=== PATIENT | female | born 1970 | race Caucasian/White ===

== ENCOUNTER → 2016-03-08 | Outpatient (CLI) | payer BC ==
--- NOTE | 2016-03-08 12:36 | CT ---
EXAMINATION TYPE: CT sinus wo con DATE OF EXAM: 03/08/2016 12:17 PM COMPARISON: NONE HISTORY: sinusitis CT DLP: 597 mGycm Automated exposure control for dose reduction was used. FINDINGS: Visualized intracranial structures are unremarkable. Soft tissues are normal. The paranasal sinuses are clear. Visualized mastoid air cells are clear. Both infundibula are patent. IMPRESSION: NORMAL CT SCAN OF THE PARANASAL SINUSES.
== END | disposition home or self-care (01) ==
LOC: RADCTMAIN 11:43
PROVIDERS: ATTEND Nurse Practitioner Family
DX: J32.9 Chronic sinusitis, unspecified (principal)
CPT/HCPCS: 70486

== ENCOUNTER 2016-04-14 05:51 | Inpatient (IN) | payer BC ==
[2016-04-14] MEDS ORDERED: SODIUM CHLORIDE 0.9% 1,000 ML IV STA (06:05)
[2016-04-14] MEDS ORDERED: ONDANSETRON 4 MG/2 ML VIAL IVP STA (06:05)
[2016-04-14] MEDS ORDERED: HYDROmorphone 1 MG/ML 1 ML SYRINGE IVP STA (06:05)
--- NOTE | 2016-04-14 06:07 | ED ---
General Adult HPI - General Chief complaint: Abdominal Pain Stated complaint: abd pain Time Seen by Provider: 04/14/16 06:00 Source: patient, RN notes reviewed Mode of arrival: ambulatory Limitations: no limitations - History of Present Illness Initial comments: This is a 45-year-old female who presents emergency department with past medical history significant for cholecystectomy as well as pancreatitis in the past. Patient states on Friday she vomited times one but Friday she felt pretty good but she did have a little bit of diarrhea. Patient states when she had the diarrhea she felt much better afterwards. Patient states at 1:00 is when she woke up with severe upper abdominal pain and vomiting. Patient states when she pulled into the parking lot at the hospital the pain went down to a 3 out of 10 but she does remain nauseated. Patient denies any fever or chills per patient denies any dysuria hematuria urinary frequency. Patient denies any chest pain difficulty breathing shortness of breath. Patient denied headache patient denies any numbness or weakness. - Related Data Home Medications Medication Instructions Recorded Confirmed Dicyclomine [Bentyl] 10 mg PO TID PRN 04/06/14 04/14/16 Acetaminophen Tab [Tylenol Tab] 1,000 mg PO Q6HR PRN 01/16/15 04/14/16 [id number] 1 each PO Q4HR PRN 01/16/15 04/14/16 [Excedrin] Famotidine [Pepcid] 20 mg PO BID 01/16/15 04/14/16 Ibuprofen [Motrin] 200 - 800 mg PO Q6HR PRN 01/16/15 04/14/16 L.acidoph,Paracasei, B.lactis 1 each PO DAILY 01/16/15 04/14/16 [Probiotic] LORazepam [Ativan] 1 mg PO TID PRN 01/16/15 04/14/16 Metamucil 1tsp 1 tsp PO DAILY 01/16/15 04/14/16 Phenergan(Unknown Dose) 1 tab PO QID 02/01/15 04/14/16 Vortioxetine Hydrobromide 10 mg PO DAILY 02/01/15 04/14/16 [Brintellix] Allergies Allergy/AdvReac Type Severity Reaction Status Date / Time tramadol HCl [From [facility]] Allergy Unknown Rash/Hives Verified 02/01/15 10:33 codeine AdvReac Unknown NAUSEA, Verified 02/01/15 10:33 DIZZINESS, FEELS "LOOPY" sertraline HCl [From Zoloft] AdvReac Hallucinati Verified 02/02/15 12:37 ons Review of Systems ROS Statement: Those systems with pertinent positive or pertinent negative responses have been documented in the HPI. ROS Other: All systems not noted in ROS Statement are negative. Past Medical History Past Medical History: GERD/Reflux Additional Past Medical History / Comment(s): HX OF MIGRAINES, ENLARGED LIVER., SPASTIC COLON WITH CONSTIPATION AND DIARRHEA AND ABD CRAMPING. Hx. of pancreatitis & heavy menstrual periods. Hospitalized for pneumonia, bronchitis last spring. History of Any Multi-Drug Resistant Organisms: None Reported Past Surgical History: Cholecystectomy, Uterine Ablation Additional Past Surgical History / Comment(s): Eye surgery as a child, colonoscopy, EGD. Past Anesthesia/Blood Transfusion Reactions: Family History of Problems w/ Anesthesia, Motion Sickness, Postoperative Nausea & Vomiting (PONV) Additional Past Anesthesia/Blood Transfusion Reaction / Comment(s): SISTERS=PONV Past Psychological History: Depression Smoking Status: Never smoker Past Alcohol Use History: None Reported Past Drug Use History: None Reported - Past Family History Mother Family Medical History: No Reported History Father Family Medical History: Hypertension General Exam - General Exam Comments Initial Comments: GENERAL: Patient is well-developed and well-nourished. Patient is nontoxic and well- hydrated and is in mild distress. ENT: Neck is soft and supple. No significant lymphadenopathy is noted. Oropharynx is clear. Moist mucous membranes. Neck has full range of motion without eliciting any pain. EYES: The sclera were anicteric and conjunctiva were pink and moist. Extraocular movements were intact and pupils were equal round and reactive to light. Eyelids were unremarkable. PULMONARY: Unlabored respirations. Good breath sounds bilaterally. No audible rales rhonchi or wheezing was noted. CARDIOVASCULAR: Patient has some mild tenderness in the epigastric region. ABDOMEN: Soft and nontender with normal bowel sounds. No palpable organomegaly was noted. There is no palpable pulsatile mass. SKIN: Skin is clear with no lesions or rashes and otherwise unremarkable. NEUROLOGIC: Patient is alert and oriented x3. Cranial nerves II through XII are grossly intact. Motor and sensory are also intact. Normal speech, volume and content. Symmetrical smile. Musculoskeletal Normal extremities with adequate strength and full range of motion. No lower extremity swelling or edema. No calf tenderness. LYMPHATICS: No significant lymphadenopathy is noted PSYCHIATRIC: Normal psychiatric evaluation. Normal interpersonal interactions appears functionally intact in deals appropriately with others. No signs of depression. Limitations: no limitations Course Vital Signs 04/14/16 04/14/16 05:54 06:34 Temperature 97.0 F L Pulse Rate 81 80 Respiratory 18 16 Rate Blood Pressure 118/56 114/57 O2 Sat by Pulse 97 96 Oximetry Medical Decision Making - Lab Data Result diagrams: 04/14/16 06:13 04/14/16 06:13 Lab Results 04/14/16 04/14/16 Range/Units 06:13 06:13 WBC 13.0 H (3.8-10.6) k/uL RBC 4.67 (3.80-5.40) m/uL Hgb 14.5 (11.4-16.0) gm/dL Hct 43.6 (34.0-46.0) % MCV 93.4 (80.0-100.0) fL MCH 31.0 (25.0-35.0) pg MCHC 33.2 (31.0-37.0) g/dL RDW 12.7 (11.5-15.5) % Plt Count 313 (150-450) k/uL Neutrophils % 86 % Lymphocytes % 8 % Monocytes % 4 % Eosinophils % 1 % Basophils % 0 % Neutrophils # 11.2 H (1.3-7.7) k/uL Lymphocytes # 1.1 (1.0-4.8) k/uL Monocytes # 0.5 (0-1.0) k/uL Eosinophils # 0.1 (0-0.7) k/uL Basophils # 0.1 (0-0.2) k/uL Sodium 142 (137-145) mmol/L Potassium 4.4 (3.5-5.1) mmol/L Chloride 105 (98-107) mmol/L Carbon Dioxide 26 (22-30) mmol/L Anion Gap 11 mmol/L BUN 11 (7-17) mg/dL Creatinine 0.73 (0.52-1.04) mg/dL Est GFR (MDRD) Af Amer >60 (>60 ml/min/1.73 sqM) Est GFR (MDRD) Non-Af >60 (>60 ml/min/1.73 sqM) Glucose 118 H (74-99) mg/dL Calcium 9.0 (8.4-10.2) mg/dL Total Bilirubin 0.9 (0.2-1.3) mg/dL AST 248 H (14-36) U/L ALT 137 H (9-52) U/L Alkaline Phosphatase 156 H (38-126) U/L Total Protein 7.7 (6.3-8.2) g/dL Albumin 4.3 (3.5-5.0) g/dL Amylase 408 H* (30-110) U/L Disposition Clinical Impression: Pancreatitis Disposition: ADMITTED IP TO THIS [facility] Time of Disposition: 06:50
[2016-04-14 06:27] LABS: Basophils # (A) 0.1 k/uL (0-0.2); Basophils % (A) 0 %; CH 31.1; CHCM 33.4; Eosinophils # (A) 0.1 k/uL (0-0.7); Eosinophils % (A) 1 %; HCT 43.6 % (34.0-46.0); HGB 14.5 gm/dL (11.4-16.0); Luc # (Auto) 0.14; Luc % (Auto) 1; Lymphocytes # (A) 1.1 k/uL (1.0-4.8); Lymphocytes % (A) 8 %; MCHC 33.2 g/dL (31.0-37.0); MCV 93.4 fL (80.0-100.0); Mean Platelet Volume 6.9; Monocytes # (A) 0.5 k/uL (0-1.0); Monocytes % (A) 4 %; Neutrophils # (A) 11.2 k/uL (1.3-7.7); Neutrophils % (A) 86 %; RBC 4.67 m/uL (3.80-5.40); RDW 12.7 % (11.5-15.5); WBC (Perox) 12.97
[2016-04-14 06:38] LABS: ALT 137 U/L (9-52); AST 248 U/L (14-36); Alkaline Phosphatase 156 U/L (38-126); Anion Gap 11 mmol/L; Blood Urea Nitrogen 11 mg/dL (7-17); Carbon Dioxide 26 mmol/L (22-30); Chloride 105 mmol/L (98-107); Glucose 118 mg/dL (74-99); Non-African American GFR(MDRD) >60 (>60 ml/min/1.73 sqM); Potassium 4.4 mmol/L (3.5-5.1); Sodium 142 mmol/L (137-145); Total Bilirubin 0.9 mg/dL (0.2-1.3); Total Protein 7.7 g/dL (6.3-8.2)
[2016-04-14 06:47] LABS: Amylase 408 U/L (30-110)
[2016-04-14] MEDS ORDERED: SODIUM CHLORIDE 0.9% 1,000 ML IV ONE (06:51)
[2016-04-14 07:05] LABS: Appearance,Urine Cloudy (Clear); Bilirubin,Urine Negative (Negative); Glucose,Urine (UA) Negative (Negative); Ketones,Urine Negative (Negative); Leukocyte Esterase,Urine Moderate (Negative); Mucus,Urine Moderate /hpf; Nitrite,Urine Negative (Negative); PH, Urine 5.5 (5.0-8.0); Particle Count 16024; Protein,Urine 1+ (Negative); RBC,Urine 13 /hpf (0-5); Specific Gravity,Urine 1.034 (1.001-1.035); Squamous Epithelial Cell,Urine 6 /hpf (0-4); UA Billing (MACRO vs. MICRO) MICRO; WBC,Urine 10 /hpf (0-5)
--- NOTE | 2016-04-14 07:11 | XR ---
EXAM: 2 AP upright views of the abdomen. INDICATION:45-year-old female with abdominal pain. COMPARISON: CT of the abdomen and pelvis 03/09/2014. FINDINGS: 2 AP upright frontal views of the abdomen demonstrates a nonobstructive, nonspecific bowel gas pattern. There are two 0.5 cm radiopaque densities project over the inferior pole of the left renal shadow and correspond to the nonobstructing renal calculi seen on the comparison CT abdomen and pelvis. Phleboliths are present in the pelvis. Surgical clips project over the right upper quadrant and right midabdomen. No evidence of organomegaly or obvious soft tissue masses. The osseous structures are intact. IMPRESSION: 1. Nonobstructing left renal calculi. 2. Otherwise, no radiographic evidence for an acute abdominopelvic abnormality.
[2016-04-14] MEDS: HYDROmorphone 1 MG/ML 1 ML SYRINGE IVP PRN ×3 (10:57→19:33)
[2016-04-14 11:13] VITALS: BMI 28.8
--- NOTE | 2016-04-14 11:13 | CONS ---
DATE OF CONSULTATION: 04/14/2016 The patient is a 45-year-old pleasant white female admitted to the hospital with acute onset of severe epigastric pain associated with nausea and vomiting that started yesterday morning. She came to the emergency room and was noted to have elevated amylase and lipase consistent with acute pancreatitis. The patient had a similar episode in 2014, at which time she was admitted at [facility] and etiology could not be determined. She is status post gallbladder in 2012 for gallbladder dyskinesia. The patient this morning states she is feeling better. Still has epigastric pain. Nausea and vomiting has resolved. No fever, chills, night sweats. She denies new medications recently. PAST MEDICAL HISTORY: Significant for irritable bowel syndrome, gastroesophageal reflux disease, and previous episode of acute pancreatitis in 2014, chronic migraines. PAST SURGICAL HISTORY: Gallbladder surgery and uterine ablation, EGD, colonoscopy in the past. Medications at home include: Brintellix, Ativan, probiotics, Metamucil, MiraLAX, Pepcid, Bentyl, Tylenol p.r.n., Excedrin. SOCIAL HISTORY: No smoking. No alcohol use. FAMILY HISTORY: Father had hypertension. Mother was unremarkable. REVIEW OF SYSTEMS: CARDIOPULMONARY: No chest pain or shortness of breath. GENITOURINARY: No dysuria or hematuria. MUSCULOSKELETAL: Unremarkable. SKIN: Unremarkable. ENDOCRINE: Unremarkable. PSYCHIATRIC: Unremarkable. NEUROLOGICAL: Unremarkable. ENT/VISION: Unremarkable. CONSTITUTIONAL: No recent weight loss. No fever, chills or night sweats. On physical examination, blood pressure 118/56, pulse rate 81, temperature 97. HEENT examination unremarkable. Conjunctivae pink. Sclerae anicteric. Oral cavity, no lesions. NECK: No JVD or lymph node enlargement. CHEST: Clear to auscultation. HEART: Regular rate and rhythm. ABDOMEN: Soft. Mild tenderness in the epigastric area. Bowel sounds are positive. No organomegaly. EXTREMITIES: No pedal edema. SKIN: No rashes. NEURO: Alert and oriented x3. No focal deficits. Labs done at the time of admission to the hospital: WBC 13, hemoglobin 14.5, platelets normal. AST 248, ALT 137, alk phos 156, T-bili 0.9, amylase 408, lipase 5897. IMPRESSION: This is a lady who presents to the hospital with acute onset of severe epigastric pain associated with nausea, vomiting, and noted to have elevated amylase, lipase consistent with acute pancreatitis. She had a similar episode in 2015, etiology not determined. She is status post gallbladder surgery 4 years ago for gallbladder dyskinesia. She is noted to have mild elevation of serum transaminases and hence, possibility of biliary pathology cannot be excluded as the cause of acute recurrent pancreatitis. Of course, other etiologies, other metabolic conditions like hypertriglyceridemia and autoimmune pancreatitis also needs to be considered. RECOMMENDATIONS: I had a lengthy discussion with the patient as well as her who is at the bedside regarding possible etiologies of acute pancreatitis. Given her elevated serum transaminases and the fact that she did not have any gallstones during her prior gallbladder surgery, I will to proceed with an M.R.C.P. to rule out any CBD pathology. If it is negative and if labs continue to improve we can treat her conservatively and I suggested that eventually she will need to have further work-up for acute recurrent pancreatitis on an outpatient basis. For now, will start her on some ice chips, continue with pain medications, repeat labs in the morning and follow her closely during her hospital stay. Thank you for this consultation.
[2016-04-14] MEDS ORDERED: ALBUTEROL NEBULIZED 2.5 MG/3 ML INHALATION PRN (11:34)
[2016-04-14] MEDS: diphenhydrAMINE 50 MG/ML 1 ML VIAL IVP PRN ×2 (14:42→19:33)
[2016-04-14 16:15] VITALS: RESP 16
[2016-04-14] MEDS ORDERED: DIAZEPAM 5 MG TAB PO STA (18:43)
[2016-04-14] MEDS: ONDANSETRON 4 MG/2 ML VIAL IVP PRN (19:32)
[2016-04-14] MEDS: KETOROLAC 30 MG/ML 1 ML VIAL IVP STA (19:33)
[2016-04-14] MEDS: ENOXAPARIN 40 MG/0.4 ML SYRINGE SQ SCH (19:34)
[2016-04-14] MEDS ORDERED: DIAZEPAM 5 MG/ML 2 ML SYRINGE IVP STA (19:43)
[2016-04-14] MEDS: PANTOPRAZOLE 40 MG/10 ML VIAL IVP SCH (20:12)
[2016-04-14] MEDS: TRINTELLIX 20 MG PO SCH (21:40)
[2016-04-14] MEDS: LORATADINE 10 MG TAB PO SCH (21:48)
[2016-04-15] MEDS: KETOROLAC 30 MG/ML 1 ML VIAL IVP STA (04:28)
--- NOTE | 2016-04-15 08:04 | HP ---
DATE OF ADMISSION: 04/14/2016 PRESENTING COMPLAINT: Abdominal pain. HISTORY OF PRESENTING COMPLAINT: Very pleasant 45-year-old patient of Dr. Mckenna whose chronic stable medical conditions include GERD, migraines, spastic colon, irritable bowel syndrome and anxiety. Patient presented with severe epigastric pain going across, going into the shoulder with nausea, vomiting, started off last night. Patient found to have acute pancreatitis. The patient had one episode before. Patient does take a Probiotic supplement called Kefir grans. Patient's at the bedside. Pain is somewhat better since presentation. Patient has had prior cholecystectomy, REVIEW OF SYSTEMS: CONSTITUTIONAL: Weak, tired. HEENT: None. RESPIRATORY: None. CARDIOVASCULAR: None. GASTROINTESTINAL: As above. GENITOURINARY: None. MUSCULOSKELETAL: None. Dermatological: None. HEMATOLOGICAL: None. LYMPHATICS: None. PSYCHIATRY: Anxiety. NEUROLOGICAL: None. Past medical history of migraines, GERD, irritable bowel syndrome, pancreatitis, anxiety. PAST SURGICAL HISTORY: Cholecystectomy, uterine ablation, eye surgery as a child. Colonoscopy. 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 FAMILY HISTORY: Reviewed, noncontributory to the presentation. HOME MEDICATIONS: 1. Trentalex 20 mg p.o. q.h.s. 2. Sodium chloride two sprays each nostril daily p.r.n. 3. MiraLax 17 grams p.o. daily. 4. Afrin 2 sprays nostril b.i.d. p.r.n. 5. Claritin 10 mg daily. 6. Ativan 0.5 to 1 mg p.o. t.i.d. p.r.n. 7. Motrin p.r.n. 8. Tylenol sinus ( ) 1 tablet q.6 p.r.n. 9. Flonase nasal spray. 10. Pepcid 20 mg q.h.s. 11. Bentyl 10 mg p.o. t.i.d. p.r.n. 12. Excedrin p.r.n. 13. Ventolin 2.5 nebulizer q.i.d. p.r.n. 14. Tylenol 1000 mg q.6 p.r.n. ALLERGIES TO ZOLOFT, CODEINE, ULTRAM. On examination, temperature 97.8, pulse 76, respiration 18, blood pressure 101/52, pulse ox 95% on room air. GENERAL APPEARANCE: Lying in bed, tired appearing. EYES: Pupils equal. Conjunctivae normal. HEENT: Oral cavity normal. NECK: JVD not raised, mass not palpable. RESPIRATORY: Effort normal. LUNGS: Fair air entry. CARDIOVASCULAR: First and second sounds normal. No edema. ABDOMEN: Soft, epigastric tenderness. No guarding or rigidity. Liver and spleen not palpable. LYMPHATIC: No lymph nodes palpable in the neck or axilla. PSYCHIATRY: Alert and oriented x3. Mood and affect normal. NEUROLOGICAL: Pupils equal. Cranial nerves grossly intact. Power and sensation grossly intact. INVESTIGATIONS: White count 13, hemoglobin 10.5. Potassium 4.4. BUN and creatinine are normal, AST 248, ALT 137. Amylase ( ) lipase ( ). ASSESSMENT: 1. Acute idiopathic pancreatitis with one prior episode. 2. Gastroesophageal reflux disease. 3. Irritable bowel syndrome. 4. Anxiety, not otherwise specified. 5. Chronic sinusitis. PLAN: Patient was made n.p.o. Patient will have M.R.C.P. with Dr. Nikhil Long. Care was discussed with the patient. IV fluids are being given. Subcu heparin for DVT prophylaxis.
[2016-04-15 08:05] LABS: Basophils % (A) 1 %; CH 30.7; CHCM 32.3; Eosinophils # (A) 0.1 k/uL (0-0.7); Eosinophils % (A) 2 %; HCT 36.8 % (34.0-46.0); HDW 2.57; HGB 11.6 gm/dL (11.4-16.0); Luc # (Auto) 0.13; Luc % (Auto) 2; Lymphocytes # (A) 1.6 k/uL (1.0-4.8); Lymphocytes % (A) 24 %; MCH 30.1 pg (25.0-35.0); MCHC 31.5 g/dL (31.0-37.0); MCV 95.7 fL (80.0-100.0); Mean Platelet Volume 6.4; Monocytes # (A) 0.3 k/uL (0-1.0); Monocytes % (A) 5 %; Neutrophils # (A) 4.4 k/uL (1.3-7.7); Neutrophils % (A) 66 %; RBC 3.85 m/uL (3.80-5.40); RDW 12.6 % (11.5-15.5); WBC 6.6 k/uL (3.8-10.6); WBC (Perox) 7.06
[2016-04-15 08:13] LABS: ALT 305 U/L (9-52); AST 227 U/L (14-36); Alkaline Phosphatase 162 U/L (38-126); Amylase 217 U/L (30-110); Anion Gap 7 mmol/L; Blood Urea Nitrogen 9 mg/dL (7-17); Carbon Dioxide 26 mmol/L (22-30); Chloride 108 mmol/L (98-107); Glucose 72 mg/dL (74-99); Non-African American GFR(MDRD) >60 (>60 ml/min/1.73 sqM); Potassium 4.1 mmol/L (3.5-5.1); Sodium 141 mmol/L (137-145); Total Bilirubin 0.7 mg/dL (0.2-1.3); Total Protein 5.8 g/dL (6.3-8.2); Triglycerides 79 mg/dL (<150)
[2016-04-15] MEDS: ENOXAPARIN 40 MG/0.4 ML SYRINGE SQ SCH (08:13)
[2016-04-15] MEDS: PANTOPRAZOLE 40 MG/10 ML VIAL IVP SCH (08:13)
[2016-04-15] MEDS: LORATADINE 10 MG TAB PO SCH (08:14)
[2016-04-15] MEDS: ONDANSETRON 4 MG/2 ML VIAL IVP PRN ×2 (08:25→13:14)
[2016-04-15] MEDS ORDERED: LORATADINE-PSEUDOEPH 5-120 MG 1 EACH TAB.ER.12H PO PRN (11:45)
--- NOTE | 2016-04-15 12:27 | MR ---
EXAMINATION TYPE: MR MRCP inpatient stat DATE OF EXAM: 04/15/2016 12:13 PM COMPARISON: MRI 03/17/2014 HISTORY: recurrent pancreatitis with abdominal pain Standard multiplanar, multisequence MRI departmental protocol FINDINGS: Common bile duct and visualized portion of the cystic duct have a normal caliber. There is no intrahe patic biliary dilation. There is some nodular prominence the pancreatic tail. There are no contrast images are adequate for e valuation The heart is prominent in size. Liver and spleen are homogeneous in echogenicity as demonstrated adre nal glands have a normal morphology. Vertebral body hemangioma suspected within the mid lumbar spine kidneys have a normal morphology. There is no evidence of active inflammatory change surrounding the pancreas. IMPRESSION: 1. Normal caliber to the biliary system. 2. Stable prominence of the pancreatic tail without evidence of discrete mass.
[2016-04-15] MEDS: KETOROLAC 30 MG/ML 1 ML VIAL IVP SCH ×2 (13:12→21:48)
[2016-04-15] MEDS: LORATADINE-PSEUDOEPH 5-120 MG 1 EACH TAB.ER.12H PO SCH ×2 (13:15→21:48)
--- NOTE | 2016-04-15 18:01 | PN ---
DATE OF DICTATION: 04/15/2016 Patient is a 45-year-old pleasant lady admitted to the hospital with acute onset of epigastric pain, nausea, vomiting, and was noted to have elevated amylase and lipase consistent with acute pancreatitis. She is doing much better today. Her abdominal pain is decreasing. No further episodes of nausea or vomiting. No fever, chills, night sweats. On physical examination, she appears comfortable, in no apparent distress. Vital signs are stable. Blood pressure is 125/61, pulse rate 73, temperature 96. HEENT: Unremarkable. Conjunctivae pink. Sclerae anicteric. Oral cavity has no lesions. NECK: No JVD or lymph node enlargement. Chest was clear to auscultation. HEART: Regular rate and rhythm. ABDOMEN: Soft. Bowel sounds are positive. No organomegaly. Mild tenderness in the epigastric area. EXTREMITIES: No pedal edema. SKIN: No rashes. NEURO: Alert and oriented x3. No focal deficits. LABS: ALT 227, AST 305, alkaline phosphatase 162. T-bili 0.7. Amylase is down to 217. Lipase is down to 716. Triglycerides are 79. WBC 6.6, hemoglobin 11.6. IMPRESSION: Acute recurrent pancreatitis, this being the second episode, with elevated serum transaminases. The patient did have M.R.C.P. done yesterday that showed no evidence of biliary ductal dilation and no stones identified. Etiology of acute recurrent pancreatitis remains unclear at this time. Possibility of sphincter early dysfunction cannot be excluded. RECOMMENDATIONS: 1. Will start her on a clear liquid diet today. 2. Repeat labs in the morning. If they are improving, she can be discharged home with outpatient followup in 1 to 2 weeks.
[2016-04-15] MEDS: TRINTELLIX 20 MG PO SCH (21:48)
--- NOTE | 2016-04-15 22:42 | PN ---
DATE OF SERVICE: 04/15/2016 PRESENTING COMPLAINT: Acute pancreatitis. INTERVAL HISTORY: This is a patient with a ( ) acute pancreatitis. I saw this patient earlier this morning. Sinuses are giving her some trouble. Otherwise, abdominal pain is better. Patient is due for M.R.C.P. this morning. Review of systems done for constitutional, cardiovascular, GI, pulmonary; relevant findings as above. Current medications are reviewed. On examination, temperature 98.1, pulse 76, respiration 16, blood pressure 101/67, pulse ox 95% on room air. GENERAL APPEARANCE: Lying in bed. EYES: Pupils equal. Conjunctivae normal. NECK: JVD not raised. Mass not palpable. RESPIRATORY: Effort normal. LUNGS: Fair air entry. CARDIOVASCULAR: First and second sounds normal. No edema. ABDOMEN: Much decreased epigastric tenderness. No guarding or rigidity. PSYCHIATRY: Alert and oriented x3. Mood and affect normal. INVESTIGATIONS: White count 6.7, hemoglobin 11.6. Potassium 4.1. BUN and creatinine are normal. AST 227, ALT 305, amylase 217, lipase 716. ASSESSMENT: 1. Acute idiopathic pancreatitis without prior episode; MRCP results came back negative. 2. Gastroesophageal reflux disease. 3. Irritable bowel syndrome. 4. Anxiety not otherwise specified. 5. Chronic sinusitis. 6. Increased liver function tests, cause unclear. PLAN: Continue current medication and treatment plan. Await further input from Dr. Nikhil Long. The pancreatitis ( ) improved. Still do not have a clear-cut explanation for patient's increasing LFTs.
[2016-04-16] MEDS: DICYCLOMINE 10 MG CAP PO PRN ×2 (00:08→12:14)
[2016-04-16] MEDS: KETOROLAC 30 MG/ML 1 ML VIAL IVP SCH ×3 (04:12→17:15)
[2016-04-16 07:58] VITALS: PULSE 83
[2016-04-16] MEDS: LORATADINE-PSEUDOEPH 5-120 MG 1 EACH TAB.ER.12H PO SCH (08:52)
[2016-04-16] MEDS: ONDANSETRON 4 MG/2 ML VIAL IVP PRN (08:52)
[2016-04-16] MEDS: PANTOPRAZOLE 40 MG/10 ML VIAL IVP SCH (08:52)
[2016-04-16] MEDS: ENOXAPARIN 40 MG/0.4 ML SYRINGE SQ SCH (08:52)
--- NOTE | 2016-04-16 09:27 | P.PN ---
Subjective Principal diagnosis: Acute pancreatitis, hepatitis 45-year-old female with a history of acalculus cholecystectomy admitted with second episode of acute pancreatitis with transaminitis. Feels better today. Clear liquid diet causing some mild nausea without emesis. Reports sinus congestion. Morning chemistries pending. Afebrile. SEKOU screen negative. Objective - Vital Signs Vital signs: Vital Signs Temp 97.9 F 04/16/16 07:00 Pulse 83 04/16/16 08:00 Resp 16 04/16/16 08:00 BP 125/60 04/16/16 07:00 Pulse Ox 96 04/16/16 07:00 Intake & Output 04/15/16 04/16/16 04/16/16 18:59 06:59 18:59 Intake Total 726 120 Balance 726 120 Weight 86.183 kg Intake: Intake, IV Titration 726 Amount Sodium Chloride 0.9% 1, 726 000 ml @ 100 mls/hr IV . Q10H ONE Rx#:[id number] Oral 120 Other: Voiding Method Toilet Toilet Toilet # Voids 3 1 1 - Exam General appearance: The patient is alert, oriented, in no acute distress. HET: Head is normocephalic and atraumatic. Pupils are equal and reactive. Oropharynx is clear without lesions. Neck: Supple without lymphadenopathy. Trachea midline. Heart: S1 S2. Regular rate and rhythm. Lungs: No crackles or wheezes are heard. Abdomen: Soft, midepigastric tenderness, nondistended with bowel sounds. No peritoneal signs. No palpable organomegaly or masses. Extremities: Normal skin color and turgor. No cyanosis, rash, ulceration, clubbing, or edema. Radial and pedal pulses are 2/4 bilaterally. Neurological: No focal deficits. Strength and sensation are grossly intact.m - Labs CBC & Chem 7: 04/15/16 07:17 04/15/16 07:17 Assessment and Plan (1) Acute pancreatitis Status: Acute (2) Transaminitis Status: Acute (3) History of cholecystectomy Status: Chronic Plan: 1. Advance diet. 2. Await morning chemistries to review. Hepatitis panel pending. Discharge will be dependent on morning chemistries and clinical course. We'll continue to follow with you. Return to office in 7-10 days after discharge for reevaluation. Assessment and plan of care discussed with Dr. Long.
[2016-04-16 10:24] LABS: ALT 205 U/L (9-52); AST 96 U/L (14-36); Amylase 95 U/L (30-110)
[2016-04-16 10:53] LABS: Hepatitis B Surface Ag Index 0.07
[2016-04-16 10:59] LABS: Hepatitis B Core IgM Index 0.05
[2016-04-16 11:11] LABS: Hepatitis C Virus IgG Ab Negative (Negative); Hepatitis C Virus IgG Index 0.03
[2016-04-16 16:16] VITALS: BP 133/67; TEMP 98.3
[2016-04-17] MEDS ORDERED: PANTOPRAZOLE 40 MG TABLET PO SCH (07:30)
--- NOTE | 2016-04-17 08:24 | DS ---
DATE OF ADMISSION: 04/14/2016 DATE OF DISCHARGE: 04/16/2016 FINAL DIAGNOSES: 1. Acute pancreatitis, idiopathic second episode. 2. Gastroesophageal reflux disease. 3. Irritable bowel syndrome. 4. Anxiety, not otherwise specified. 5. Chronic sinusitis. 6. Increased LFTs, cause unclear. HOSPITAL COURSE: This is a patient with prior history of pancreatitis, cholecystectomy presented with acute pancreatitis. Did undergo an MRCP per Dr. Nikhil Long that was normal. The patient's symptoms greatly improved by the time of discharge. Patient is tolerating a diet. ON EXAM: ABDOMEN: Soft, minimal tenderness. Care was discussed in detail with the patient. CONSULTATION: Dr. Nikhil Long. Patient's LFTs have come down with AST down to 96 and ALT was 205. Amylase and lipase had greatly come down. DISCHARGE MEDICATIONS: 1. Bentyl 10 mg p.o. t.i.d. p.r.n. 2. Excedrin 1 tablet q.4 p.r.n. 3. Pepcid 20 mg p.o. q.h.s. 4. Ativan 0.5 to 1 mg p.o. t.i.d. 5. Ventolin 2.5 mg q.i.d. p.r.n. 6. Flonase 1 to 2 sprays each nostril daily p.r.n. 7. Afrin 2 sprays each nostril b.i.d. p.r.n. 8. MiraLAX 17 grams p.o. daily. 9. [place] spray each nostril daily p.r.n. 10. Trintellix 20 mg p.o. q.h.s. 11. Claritin-D 1 tablet p.o. q.12. 12. Patient to hold off on Tylenol Sinus ( ) caplet and also to hold off on plain Tylenol. Follow up with Dr. Mckenna in 3 days. Follow up with Dr. Long p.r.n. Discharge care planning more 35 minutes.
== END 2016-04-16 17:45 | disposition home or self-care (01) | DRG 440 ==
LOC: EC 05:51 → 5MS5E 06:51
PROVIDERS: ADMIT Hospitalist; ATTEND Hospitalist
DX: K85.00 Idiopathic acute pancreatitis without necrosis or infection (principal); F32.9 Major depressive disorder, single episode, unspecified; F41.9 Anxiety disorder, unspecified; K21.9 Gastro-esophageal reflux disease without esophagitis; K58.0 Irritable bowel syndrome with diarrhea; J32.9 Chronic sinusitis, unspecified; Z90.49 Acquired absence of other specified parts of digestive tract; G43.909 Migraine, unspecified, not intractable, without status migrainosus; Z79.82 Long term (current) use of aspirin; Z79.899 Other long term (current) drug therapy
CPT/HCPCS: 36415; 74000; 74181; 80053; 80074; 81001; 82150; 83690; 84450; 84460; 84478; 85025; 86038; 96361; 96374; 96375; 99285

== ENCOUNTER → 2017-05-27 | Outpatient (CLI) | payer BC ==
--- NOTE | 2017-05-28 10:43 | MM ---
Reason for exam: screening (asymptomatic). Last mammogram was performed 2 years and 3 months ago. History: Took hormonal contraceptives for 2 years. Physical Findings: A clinical breast exam by your physician is recommended on an annual basis and results should be correlated with mammographic findings. MG 3D Screening Mammo W/Cad Bilateral CC and MLO view(s) were taken. Prior study comparison: February 24, 2015, right breast MG 3d work up w/cad RT. February 22, 2015, bilateral MG screening mammo w CAD. The breast tissue is extremely dense which could obscure a lesion on mammography. Finding: There are typically benign round calcifications in both breasts. There is no discrete abnormality. ASSESSMENT: Benign, BI-RAD 2 RECOMMENDATION: Routine screening mammogram of both breasts in 1 year.
== END | disposition home or self-care (01) ==
LOC: RADMAMWWP 10:57
PROVIDERS: ATTEND Obstetrics & Gynecology
DX: Z12.31 Encounter for screening mammogram for malignant neoplasm of breast (principal)
CPT/HCPCS: 77063; 77067

== ENCOUNTER → 2018-08-22 | Outpatient (CLI) | payer BC ==
--- NOTE | 2018-08-22 08:47 | MR ---
EXAMINATION TYPE: MR cervical spine wo con DATE OF EXAM: 08/22/2018 COMPARISON: None HISTORY: Chronic neck pain, LUE radic, recently getting worse TECHNIQUE: Multiplanar, multisequence images of the cervical spine were acquired. C2-C3: No evidence for degenerative disc disease. No disc bulge/herniation or protrusion. No Canal stenosis. Foramina are patent bilaterally. C3-C4: There is moderate left foraminal encroachment due to left lateral disc bulging and hypertrophy of the uncovertebral joint. No focal herniation or canal stenosis. C4-C5: No evidence for degenerative disc disease. No disc bulge/herniation or protrusion. No Canal stenosis. Foramina are patent bilaterally. Mild uncovertebral joint hypertrophy bilaterally. C5-C6: Degenerative disc disease. There is uncovertebral joint hypertrophy and disc bulging laterally to left with moderate left foraminal encroachment. No focal herniation. No Canal stenosis. Degenerat lydia facet changes noted. C6-C7: Severe degenerative disc disease. There is a broad-based central left paracentral disc herniat ion which abuts the anterior margin the spinal cord and results in mild anterior pressure. There is m oderate to severe right foraminal encroachment and severe left foraminal encroachment and there is ce ntral canal stenosis. Uncovertebral joint hypertrophy contributes. C7-T1: No evidence for degenerative disc disease. No disc bulge/herniation or protrusion. No Canal stenosis. Foramina are patent bilaterally. Cervical segments are intact. There is normal alignment. Cervical spinal cord is of normal signal. Craniovertebral junction relationships are within normal limits. There is multilevel degenerative disc disease. IMPRESSION: 1. Central and left paracentral disc herniation with anterior mild compression of spinal cord C6-C7. Bilateral foraminal encroachment greater on the left. 2. Lateral disc bulging and uncovertebral joint hypertrophy C5-C6 and C3-C4 with significant left-ramírez ed foraminal encroachment. 3. Multilevel degenerative disc disease.
== END | disposition home or self-care (01) ==
LOC: RADMRIMAIN 07:57
PROVIDERS: ATTEND Family Medicine
DX: M50.122 Cervical disc disorder at C5-C6 level with radiculopathy (principal); G95.29 Other cord compression
CPT/HCPCS: 72141

== ENCOUNTER → 2018-09-04 | Outpatient (CLI) | payer BC ==
[2018-09-04 11:16] LABS: Appearance,Urine Cloudy (Clear); Bilirubin,Urine Negative (Negative); Blood,Urine Negative (Negative); Color,Urine Yellow; Glucose,Urine (UA) Negative (Negative); Ketones,Urine Negative (Negative); Leukocyte Esterase,Urine Large (Negative); Mucus,Urine Few /hpf; Nitrite,Urine Negative (Negative); PH, Urine 5.5 (5.0-8.0); Protein,Urine Trace (Negative); RBC,Urine 6 /hpf (0-5); Specific Gravity,Urine 1.031 (1.001-1.035); Squamous Epithelial Cell,Urine 13 /hpf (0-4); Urobilinogen,Urine <2.0 mg/dL (<2.0); WBC,Urine 17 /hpf (0-5)
[2018-09-04 11:17] LABS: Basophils # (A) 0.1 k/uL (0-0.2); Basophils % (A) 1 %; Eosinophils # (A) 0.2 k/uL (0-0.7); Eosinophils % (A) 2 %; HCT 43.4 % (34.0-46.0); HGB 13.9 gm/dL (11.4-16.0); Lymphocytes # (A) 2.1 k/uL (1.0-4.8); Lymphocytes % (A) 16 %; MCH 29.4 pg (25.0-35.0); MCHC 32.1 g/dL (31.0-37.0); MCV 91.8 fL (80.0-100.0); Mean Platelet Volume 6.2; Monocytes # (A) 0.4 k/uL (0-1.0); Monocytes % (A) 3 %; Neutrophils # (A) 10.3 k/uL (1.3-7.7); Neutrophils % (A) 78 %; Platelet Count 428 k/uL (150-450); RBC 4.72 m/uL (3.80-5.40); WBC 13.3 k/uL (3.8-10.6)
[2018-09-04 11:20] LABS: INR 0.9 (<1.2); Partial Thromboplastin Time 27.3 sec (22.0-30.0); Prothrombin Time 9.6 sec (9.0-12.0)
[2018-09-04 18:15] LABS: African American GFR (CKD) 87.6 (60.0-200.0); Albumin 4.7 g/dL (3.80-4.90); Albumin/Globulin Ratio 2.04 (1.60-3.17); Anion Gap 9.9 mmol/L (4.00-12.00); BUN/Creat Ratio 21.11 Ratio (12.00-20.00); Calcium 9.6 mg/dL (8.7-10.3); Carbon Dioxide 28.1 mmol/L (21.6-31.8); Globulin 2.3 g/dL (1.6-3.3); Potassium 3.9 mmol/L (3.5-5.5); Total Bilirubin 0.5 mg/dL (0.2-1.2)
== END | disposition home or self-care (01) ==
LOC: LABWHC1 10:21
PROVIDERS: ATTEND Family Medicine
DX: Z01.812 Encounter for preprocedural laboratory examination (principal)
CPT/HCPCS: 36415; 80053; 81001; 85025; 85610; 85730

== ENCOUNTER → 2019-11-24 | Outpatient (CLI) | payer BC ==
--- NOTE | 2019-11-25 07:25 | MR ---
MRI CERVICAL SPINE: CLINICAL HISTORY: Neck and left shoulder pain, limited range of motion and shoulder. History of cervi aide surgery. TECHNIQUE: Multiplanar, multisequence imaging of the cervical spine is performed without IV contrast. COMPARISON: Prior MRI cervical spine August 22, 2018. FINDINGS: Sagittal images of the cervical spine show the craniocervical junction to remain within nor mal limits. The cervical and upper thoracic spinal cord remains normal in course, caliber, and signa l. Interval surgery with no artifact from anterior fusion plate and metallic disc material C5-C7 leve ls. The vertebral body and intravertebral disk heights are normal above and below surgical levels. The bone marrow signal intensity is within normal limits above and below surgical levels. Axial images show C2-C3 level to remain within normal limits. Axial images at C3-C4 level show left lateral disc bulge causing moderate neural foraminal narrowing, no significant change from prior. Axial images at C4-C5 level shows a left paracentral disc protrusion effacing anterolateral thecal sa c with uncovertebral facet degenerative changes mild bilateral neural foraminal narrowing. Disc herni ation more prominent from prior. Axial images at C5-C6 levels artifact from surgical change. Patent bilateral neural foramina. Axial images at C6-C7 level show artifact from surgical change, there is some effacement anterior the aide sac likely from posterior bony projection axial image 16 near superior C7 level. Marked interval improvement in the largest disc herniation after surgery however. Lruc-zy-ezvygfux bilateral neural f oraminal narrowing C6-C7 level remains present due to marginal spurring. Axial images at C7-T1 level remain within normal limits. IMPRESSION: Interval surgery C5-C7 level with satisfactory and stable alignment. Improvement in large st disc herniation after surgical correction. Some increasing degenerative change or new disc herniat ion C4-C5 level noted.
== END | disposition home or self-care (01) ==
LOC: RADMRIMAIN 20:06
PROVIDERS: ATTEND Neurological Surgery
DX: M50.121 Cervical disc disorder at C4-C5 level with radiculopathy (principal)
CPT/HCPCS: 72141

== ENCOUNTER → 2020-06-22 | Outpatient (CLI) | payer BC ==
--- NOTE | 2020-06-23 11:44 | MM ---
Reason for exam: screening (asymptomatic). Last mammogram was performed 3 years and 1 month ago. History: Took hormonal contraceptives for 2 years. Physical Findings: A clinical breast exam by your physician is recommended on an annual basis and results should be correlated with mammographic findings. MG 3D Screening Mammo W/Cad Bilateral CC and MLO view(s) were taken. Prior study comparison: May 27, 2017, bilateral MG 3d screening mammo w/cad. February 24, 2015, right breast MG 3d work up w/cad RT. The breast tissue is heterogeneously dense. This may lower the sensitivity of mammography. Asymmetric breast tissue left upper quadrant is stable. There is no discrete abnormality. ASSESSMENT: Negative, BI-RAD 1 RECOMMENDATION: Routine screening mammogram of both breasts in 1 year.
== END | disposition home or self-care (01) ==
LOC: RADMAMWWP 15:51
PROVIDERS: ATTEND Family Medicine
DX: Z12.31 Encounter for screening mammogram for malignant neoplasm of breast (principal)
CPT/HCPCS: 77063; 77067

== ENCOUNTER → 2020-06-28 | Outpatient (CLI) | payer BC | END | disposition home or self-care (01) | LOC: LABWHC1 11:20 | PROVIDERS: ATTEND Nurse Practitioner Family | DX: M25.50 Pain in unspecified joint (principal); R53.83 Other fatigue; Z86.19 Personal history of other infectious and parasitic diseases | CPT/HCPCS: 36415; 86618 ==

== ENCOUNTER 2020-07-26 07:43 | Day surgery (SDC) | payer BC ==
[2020-07-25 08:52] VITALS: BMI 33.4
[2020-07-26 08:05] VITALS: RESP 16; TEMP 98.6
[2020-07-26] MEDS ORDERED: LACTATED RINGERS 1,000 ML IV ONE (08:08)
[2020-07-26] MEDS ORDERED: LIDOCAINE 1% (10MG/ML) FOR IV START INTRADERMA ONE (08:08)
[2020-07-26] MEDS ORDERED: fentaNYL (PF) 50 MCG/ML 2 ML AMP ONE (08:34)
[2020-07-26] MEDS ORDERED: MIDAZOLAM 2 MG/2 ML VIAL ONE (08:34)
[2020-07-26] MEDS ORDERED: PROPOFOL 10 MG/ML 20 ML VIAL IV ONE (08:34)
--- NOTE | 2020-07-26 08:43 | P.PCN ---
Date of Procedure: 07/26/20 Procedure(s) Performed: BRIEF HISTORY: Patient is a 49-year-old, pleasant, white female scheduled for an upper endoscopy as a part of evaluation of long-standing history of GERD. In the last 2 months she is been having worsening epigastric pain associated with passive regurgitation. She was started on omeprazole 20 mg a day and symptoms are gradually improving. PROCEDURE PERFORMED: Esophagogastroduodenoscopy with biopsy. PREOPERATIVE DIAGNOSIS: GERD/epigastric pain. IV sedation per anesthesia. PROCEDURE: After informed consent was obtained, the patient was brought into the endoscopy unit. IV sedation was administered by Anesthesia under continuous monitoring. Initially the Olympus GIF-140 video endoscope was inserted into the mouth. Esophagus intubated without any difficulty. It was gradually advanced into the stomach and duodenum and carefully examined. The bulb and the second part of the duodenum appeared normal. The scope at this time was withdrawn to the stomach, adequately insufflated with air, and upon careful examination, mucosa of the antrum had mild gastritis and biopsies were done from this area.The body, cardia and the fundus appeared normal. The scope was then withdrawn into the esophagus. The GE junction was located at 40 cm from the incisors. The esophagus appeared normal. There were no erosions or ulcerations seen and the patient tolerated the procedure well. IMPRESSION: 1..Mild antral gastritis 2. Normal-appearing esophagus with no evidence of esophagitis or Cherry's esophagus RECOMMENDATIONS: The findings of this examination were discussed with the patient as a family. She was advised to follow with the biopsy results.. She will continue with omeprazole 20 mg daily and follow antireflux measures.
[2020-07-26 09:28] VITALS: BP 122/76; PULSE 82
== END 2020-07-26 09:29 | disposition home or self-care (01) ==
LOC: ORWHC2ENDO 07:43
PROVIDERS: ATTEND Internal Medicine Gastroenterology
DX: K29.50 Unspecified chronic gastritis without bleeding (principal); K21.9 Gastro-esophageal reflux disease without esophagitis; G43.909 Migraine, unspecified, not intractable, without status migrainosus; Z79.82 Long term (current) use of aspirin; Z79.899 Other long term (current) drug therapy; Z88.5 Allergy status to narcotic agent; Z88.8 Allergy status to other drugs, medicaments and biological substances
CPT/HCPCS: 81025; 88305; 43239; J2250; J3010; J2704

== ENCOUNTER 2020-08-28 17:37 | Emergency (ER) | payer BC ==
[2020-08-28 17:42] VITALS: RESP 20; TEMP 97.6
[2020-08-28] MEDS ORDERED: DIPH,PERTUS(ACELL)TETVAC-LF 0.5 ML VIAL IM ONE (18:13)
[2020-08-28] MEDS ORDERED: diphenhydrAMINE 50 MG CAP PO STA (18:13)
[2020-08-28] MEDS ORDERED: ACET/COD 300 MG/30 MG STARTER PACK 6 TAB BTL PO STA (18:13)
[2020-08-28] MEDS ORDERED: Acetaminophen-Codeine 300-30mg TAB PO STA (18:32)
--- NOTE | 2020-08-28 19:18 | XR ---
EXAMINATION TYPE: XR Hip Complete RT DATE OF EXAM: 08/28/2020 COMPARISON: NONE HISTORY: Right hip pain TECHNIQUE: 2 views FINDINGS: I see no fracture nor dislocation. There is minor acetabular spurring. Sacroiliac joint is intact. There is no evidence of a fracture. IMPRESSION: Acetabular spurring. No fracture seen.
--- NOTE | 2020-08-28 19:19 | XR ---
EXAMINATION TYPE: XR knee complete RT DATE OF EXAM: 08/28/2020 COMPARISON: NONE HISTORY: Knee pain TECHNIQUE: 3 views FINDINGS: I see no fracture nor dislocation. Joint spaces are normal. There is no sign of joint effus ion. IMPRESSION: Negative right knee exam.
--- NOTE | 2020-08-28 19:27 | ED ---
Lower Extremity Injury HPI - General Chief Complaint: Extremity Injury, Lower Stated Complaint: Attacked by rooster Time Seen by Provider: 08/28/20 17:45 Source: patient Mode of arrival: wheelchair Limitations: physical limitation - History of Present Illness Initial Comments: 50-year-old male presents to emergency Department with a chief complaint of r ight leg pain. Patient reports earlier today she was attacked by a rooster the calls a valgus injury to her right knee. Patient reports there was also a small laceration lateral aspect of the right knee which she has applied a Steri-Strip. Tetanus not up-to-date. She reports most of the pain is located in the infrapatellar region of the right knee. She also reports right hip pain seems to be exacerbated with any movement or weightbearing. Patient denies any swelling or erythematous, ecchymotic changes. Patient reports the pain is sharp 7/10. Denies paresthesias or weakness - Related Data Home Medications Medication Instructions Recorded Confirmed [id number] 1 tab PO Q4HR PRN 01/16/15 07/26/20 [Excedrin] LORazepam [Ativan] 0.5 - 1 mg PO TID PRN 01/16/15 07/26/20 Biotin 10,000 mcg PO DAILY 07/25/20 07/26/20 Cholecalciferol (Vitamin D3) 125 mcg PO DAILY 07/25/20 07/26/20 [Vitamin D3 (5000 Iu)] Ibuprofen 200 mg PO Q8H PRN 07/25/20 07/26/20 Loratadine-Pseudoeph 5-120 mg 1 each PO Q12HR PRN 07/25/20 07/26/20 [Claritin-D 12 Hour] Multivitamins, Thera [Multivitamin 1 tab PO DAILY 07/25/20 07/26/20 (formulary)] Omeprazole [PriLOSEC] 20 mg PO HS 07/25/20 07/26/20 Venlafaxine HCl [Effexor] 50 mg PO HS 07/25/20 07/26/20 Vitamin B Complex 1 each PO DAILY 07/25/20 07/26/20 Allergies Allergy/AdvReac Type Severity Reaction Status Date / Time tramadol HCl [From Ultram] Allergy Unknown Rash/Hives Verified 08/28/20 17:42 codeine AdvReac Unknown NAUSEA, Verified 08/28/20 17:42 DIZZINESS, FEELS "LOOPY" sertraline HCl [From Zoloft] AdvReac Hallucinati Verified 08/28/20 17:42 ons Review of Systems ROS Statement: Those systems with pertinent positive or pertinent negative responses have been documented in the HPI. ROS Other: All systems not noted in ROS Statement are negative. Past Medical History Past Medical History: GERD/Reflux Additional Past Medical History / Comment(s): HX OF MIGRAINES, ENLARGED LIVER., SPASTIC COLON WITH CONSTIPATION AND DIARRHEA AND ABD CRAMPING. Hx. of pancreatitis & heavy menstrual periods. History of Any Multi-Drug Resistant Organisms: None Reported Past Surgical History: Cholecystectomy, Uterine Ablation Additional Past Surgical History / Comment(s): Eye surgery as a child, colonoscopy, EGD. Past Anesthesia/Blood Transfusion Reactions: Family History of Problems w/ Anesthesia, Motion Sickness, Postoperative Nausea & Vomiting (PONV) Additional Past Anesthesia/Blood Transfusion Reaction / Comment(s): SISTERS=PONV Past Psychological History: Depression Smoking Status: Never smoker Past Alcohol Use History: None Reported Past Drug Use History: None Reported - Past Family History Mother Family Medical History: No Reported History Father Family Medical History: Hypertension General Exam Limitations: physical limitation General appearance: alert, in no apparent distress, obese Head exam: Present: atraumatic, normocephalic, normal inspection Eye exam: Present: normal appearance, PERRL, EOMI Pupils: Present: normal accommodation ENT exam: Present: normal exam, normal oropharynx, mucous membranes moist Neck exam: Present: normal inspection, full ROM. Absent: tenderness, lymphadenopathy Respiratory exam: Present: normal lung sounds bilaterally. Absent: respiratory distress Cardiovascular Exam: Present: regular rate, normal rhythm, normal heart sounds. Absent: systolic murmur Extremities exam: Present: normal inspection (Small laceration on the lateral aspect of her right knee measuring less then 5 mm), full ROM, tenderness (Right infrapatellar tenderness. Tenderness over the right hip as well), normal capillary refill, other (Palpable DP and PT bilaterally. Sensation intact in the right lower extremity.). Absent: pedal edema, joint swelling, calf tenderness Back exam: Present: normal inspection, full ROM. Absent: tenderness Neurological exam: Present: alert, oriented X3 Psychiatric exam: Present: normal affect, normal mood Skin exam: Present: warm, dry, intact, normal color Course Vital Signs 08/28/20 17:39 Temperature 97.6 F Pulse Rate 84 Respiratory 20 Rate Blood Pressure 120/76 O2 Sat by Pulse 100 Oximetry Medical Decision Making - Medical Decision Making 50-year-old female presents to emergency Department with a chief complaint of right leg pain. Small laceration that does not require laceration repair over t he lateral aspect of the right knee. Tenderness is right patellar regionShe is otherwise neurovascularly intact. X-ray of the right hip and knee is unremarkable. Knee immobilizer will be applied. Patient was advised to follow- up with work station support specialist. Return parameters were thoroughly discussed patient understanding and agreeable. Case discussed with tetanus was updated. Disposition Clinical Impression: Right knee sprain, Laceration, Right hip pain Disposition: HOME SELF-CARE Condition: Stable Instructions (If sedation given, give patient instructions): Knee Sprain (ED) Additional Instructions: Follow with work station support specialist. Return to emergency department if symptoms worsen. Is patient prescribed a controlled substance at d/c from ED?: No Referrals: Hudson Mckenna MD [Primary Care Provider] - 1-2 days Daniel Pascal DO [Doctor of Osteopathic Medicine] - 1-2 days Time of Disposition: 19:26
[2020-08-28 19:49] VITALS: BP 139/73; PULSE 75
== END 2020-08-28 19:56 | disposition home or self-care (01) ==
LOC: EC 17:37
DX: S81.011A Laceration without foreign body, right knee, initial encounter (principal); M25.551 Pain in right hip; K21.9 Gastro-esophageal reflux disease without esophagitis; F32.9 Major depressive disorder, single episode, unspecified; Z79.82 Long term (current) use of aspirin; Z79.1 Long term (current) use of non-steroidal anti-inflammatories (NSAID); Z79.899 Other long term (current) drug therapy; Z88.5 Allergy status to narcotic agent; Z88.8 Allergy status to other drugs, medicaments and biological substances; Y00.XXXA Assault by blunt object, initial encounter
CPT/HCPCS: 73502; 73562; 90715; 90471; 99283; L1830

== ENCOUNTER 2021-08-12 15:50 | Emergency (ER) | payer BC ==
--- NOTE | 2021-08-12 17:16 | ED ---
General Adult HPI - General Chief complaint: Upper Respiratory Infection Stated complaint: COVID+/Infusion Time Seen by Provider: 08/12/21 17:12 Source: patient Mode of arrival: ambulatory Limitations: no limitations - History of Present Illness Initial comments: Patient presents to the ED with her requesting monoclonal antibody infusion treatment for Covid. Patient states that she has had a cough, nasal congestion, headache, sore throat and fever for the past 2 days, and she states that she tested positive for Covid on a home Covid test today. Patient states that she last took a dose of ibuprofen and NyQuil about 6-1/2 hours ago. Patient denies known sick contact. Patient denies Covid vaccination. Patient denies trauma or injury, focal neuro deficit, neck pain or stiffness, chest pain, dyspnea, hemoptysis, palpitations, dizziness, abdominal pain, nausea/vomiting/diarrhea, dysuria or urinary symptoms, rash, or any other symptoms or complaints. - Related Data Home Medications Medication Instructions Recorded Confirmed [id number] 1 tab PO Q4HR PRN 01/16/15 07/26/20 [Excedrin] LORazepam [Ativan] 0.5 - 1 mg PO TID PRN 01/16/15 07/26/20 Biotin 10,000 mcg PO DAILY 07/25/20 07/26/20 Cholecalciferol (Vitamin D3) 125 mcg PO DAILY 07/25/20 07/26/20 [Vitamin D3 (5000 Iu)] Ibuprofen 200 mg PO Q8H PRN 07/25/20 07/26/20 Loratadine-Pseudoeph 5-120 mg 1 each PO Q12HR PRN 07/25/20 07/26/20 [Claritin-D 12 Hour] Multivitamins, Thera [Multivitamin 1 tab PO DAILY 07/25/20 07/26/20 (formulary)] Omeprazole [PriLOSEC] 20 mg PO HS 07/25/20 07/26/20 Venlafaxine HCl [Effexor] 50 mg PO HS 07/25/20 07/26/20 Vitamin B Complex 1 each PO DAILY 07/25/20 07/26/20 Allergies Allergy/AdvReac Type Severity Reaction Status Date / Time tramadol HCl [From Ultram] Allergy Unknown Rash/Hives Verified 08/12/21 17:01 codeine AdvReac Unknown NAUSEA, Verified 08/12/21 17:01 DIZZINESS, FEELS "LOOPY" sertraline HCl [From Zoloft] AdvReac Hallucinati Verified 08/12/21 17:01 ons Review of Systems ROS Statement: Those systems with pertinent positive or pertinent negative responses have been documented in the HPI. ROS Other: All systems not noted in ROS Statement are negative. Past Medical History Past Medical History: GERD/Reflux Additional Past Medical History / Comment(s): HX OF MIGRAINES, ENLARGED LIVER., SPASTIC COLON WITH CONSTIPATION AND DIARRHEA AND ABD CRAMPING. Hx. of pancreatitis & heavy menstrual periods. History of Any Multi-Drug Resistant Organisms: None Reported Past Surgical History: Cholecystectomy, Uterine Ablation Additional Past Surgical History / Comment(s): Eye surgery as a child, colonoscopy, EGD. Past Anesthesia/Blood Transfusion Reactions: Family History of Problems w/ Anesthesia, Motion Sickness, Postoperative Nausea & Vomiting (PONV) Additional Past Anesthesia/Blood Transfusion Reaction / Comment(s): SISTERS=PONV Past Psychological History: Depression Smoking Status: Never smoker Past Alcohol Use History: None Reported Past Drug Use History: None Reported - Past Family History Mother Family Medical History: No Reported History Father Family Medical History: Hypertension General Exam Limitations: no limitations General appearance: alert, in no apparent distress Head exam: Present: atraumatic, normocephalic Eye exam: Present: normal appearance, EOMI ENT exam: Present: normal oropharynx, mucous membranes moist Neck exam: Present: other (Trachea is in midline). Absent: tenderness, meningismus Respiratory exam: Present: normal lung sounds bilaterally. Absent: respiratory distress, wheezes, rales, rhonchi, stridor Cardiovascular Exam: Present: regular rate, normal rhythm, normal heart sounds, other (Normal radial pulses bilaterally) GI/Abdominal exam: Present: soft. Absent: distended, tenderness, guarding Extremities exam: Absent: tenderness, pedal edema, calf tenderness Neurological exam: Present: alert, oriented X3, CN II-XII intact. Absent: motor sensory deficit Psychiatric exam: Present: normal affect, normal mood Skin exam: Present: warm, dry, intact, normal color Course Vital Signs 08/12/21 08/12/21 16:56 17:43 Temperature 97.8 F Pulse Rate 103 H Respiratory 18 15 Rate Blood Pressure 127/64 O2 Sat by Pulse 97 Oximetry Medical Decision Making - Medical Decision Making Patient is breathing comfortably in the ED with a normal room air oxygen saturation. Patient's chest x-ray is unremarkable. Patient received monoclonal antibody infusion treatment in the ED after informed consent was obtained. Patient was counseled about Covid-19 infection and isolation precautions. Patient feels comfortable going home at this time. Patient was clearly explained return and follow-up instructions. - Lab Data Lab Results 08/12/21 Range/Units 17:14 Coronavirus (PCR) Detected A (Not Detectd) - Radiology Data Chest x-ray: Normal chest. Disposition Clinical Impression: COVID-19 virus infection Disposition: HOME SELF-CARE Condition: Stable Instructions (If sedation given, give patient instructions): COVID-19 (Coronavirus Disease 2019) (ED) Additional Instructions: Return to the ER immediately should you develop new or worsening pain, shortness of breath/trouble breathing, feeling dizzy or faint, or new or worsening symptoms. Follow up closely with your primary care provider. Is patient prescribed a controlled substance at d/c from ED?: No Referrals: Hudson Mckenna MD [Primary Care Provider] - 1-2 days Time of Disposition: 20:01
[2021-08-12] MEDS ORDERED: IBUPROFEN 600 MG TAB PO STA (17:37)
--- NOTE | 2021-08-12 18:07 | XR ---
EXAMINATION TYPE: XR chest 2V DATE OF EXAM: 08/12/2021 COMPARISON: NONE HISTORY: Cough and fever TECHNIQUE: 2 views FINDINGS: Heart and mediastinum are normal. Lungs are clear. Diaphragm is normal. Bony thorax is inta ct. IMPRESSION: Normal chest.
[2021-08-12] MEDS ORDERED: BEBTELOVIMAB (EUA) 175 MG/2 ML VIAL IV ONE (19:00)
[2021-08-12 21:41] VITALS: BP 135/78; PULSE 86; RESP 16; TEMP 98.4
== END 2021-08-12 21:05 | disposition home or self-care (01) ==
LOC: EC 15:50
DX: U07.1 COVID-19 (principal); K21.9 Gastro-esophageal reflux disease without esophagitis; Z79.83 Long term (current) use of bisphosphonates; Z88.5 Allergy status to narcotic agent; Z88.6 Allergy status to analgesic agent
CPT/HCPCS: 87635; 71046; 99284; Q0222

== ENCOUNTER → 2022-01-24 | Outpatient (CLI) | payer BC ==
--- NOTE | 2022-01-25 12:15 | CA ---
Exercise Stress Test Report Name: Marzena Oneal Exam Date: 01/24/2022 09:13 Exam Location: [facility] Stress Ht (in): 68 Wt (lb): 230 BSA: 2.17 Ordering Phys: Richard Cole MD Referring Phys: RICHARD COLE,, Technologist: Armin Pina Age: 51 Gender: F : 1970 Procedure CPT: Indications: E78.5 hyperlipodemia ICD-10 Codes: Patient History: Medications: Meds past 24 hrs: Pretest Chest Pain: STRESS TEST Poncho Protocol Exercise Duration (min:sec): 06:[address] Depressions (mm): Angina Score: Avalos Score: Resting HR (bpm): 72 Peak HR (bpm): 153 Resting BP (mmHg): 136 / 79 Peak BP (mmHg): 207 / 80 MPHR: 169 Target HR: 144 % MPHR: 91 METS: 7.7 Total Dose: Peak Dose: Atropine: Double Product: 18271 BP Response: Stress Termination: Reached target heart rate Stress Symptoms: NO SYMPTOMS Stress Summary: ECG ANALYSIS Resting ECG: Stress ECG: CONCLUSIONS Exercise stress test Baseline heart rate 72 beats a minute, Baseline blood pressure 136/79 mmHg Patient exercised on Poncho protocol for 6 was 20 seconds achieving a peak heart rate 153 beats a minute No ECG was for ischemia Arrhythmias Impression average exercise capacity without any ECG evidence of ischemia Dr. Danilo Foster MD (Electronically Signed) Final Date: 25 January 2022 12:14
== END | disposition home or self-care (01) ==
LOC: RADNMMAIN 08:48
PROVIDERS: ATTEND Family Medicine
DX: E78.5 Hyperlipidemia, unspecified (principal)
CPT/HCPCS: 93017

== ENCOUNTER → 2022-10-07 | Outpatient (CLI) | payer BC ==
--- NOTE | 2022-10-08 08:25 | MM ---
Reason for Exam: Screening (asymptomatic). Last mammogram was performed 2 year(s) and 3 month(s) ago. Patient History: Menarche at age 12. First Full-Term at age 19. Perimenopausal. Patient used Hormonal Contraceptives for 2 years. Risk Values: Lana 5 year model risk: 0.8%. NCI Lifetime model risk: 6.3%. Prior Study Comparison: 02/24/2015 Right Diagnostic Mammogram, [facility]. 05/27/2017 Bilateral Screening Mammogram, [facility]. 06/22/2020 Bilateral Screening Mammogram, [facility]. Tissue Density: The breast tissue is heterogeneously dense. This may lower the sensitivity of mammography. Findings: Analyzed By CAD. There is no suspicious group of microcalcifications or new suspicious mass in either breast. Benign calcifications within both breasts. Overall Assessment: Benign, BI-RAD 2 Management: Screening Mammogram of both breasts in 1 year. A clinical breast exam by your physician is recommended on an annual basis and results should be correlated with mammographic findings. Note on Lana scores and lifetime risk: 1. A Lana score greater than 3% is considered moderate risk. If this is the case, consider specialist referral to assess eligibility for a risk reducing agent. If overall lifetime risk for the development of breast cancer is 20% or higher, the patient may qualify for future screening with alternating mammogram and breast MRI. Electronically signed and approved by: Justice Rizvi D.O.
== END | disposition home or self-care (01) ==
LOC: RADMAMWWP 15:04
PROVIDERS: ATTEND Family Medicine
DX: Z12.31 Encounter for screening mammogram for malignant neoplasm of breast (principal)
CPT/HCPCS: 77063; 77067

== ENCOUNTER → 2022-10-22 | Outpatient (CLI) | payer BC ==
--- NOTE | 2022-10-22 16:32 | P.PN ---
Progress Note - Text Progress Note Date: 10/22/22 51-year-old female patient coming in to the office regarding her obstructive sleep apnea. The patient has MARIKA and based on her sleep study, the patient has been found to have a moderately severe disease with an AHI of 17 worse during REM sleep. The patient underwent a successful CPAP titration and she was offered CPAP therapy as the patient was having issues with chronic hypersomnia and fatigue. She is known to have migraines, depression, hyperlipidemia and acid reflux and she has undergone previous spinal fusion. The patient is utilizing her machine and based on the compliance data that has been collected between 09/22/2022 and 10/21/2022, the overall compliancy with 97% and the pat ient was able to achieve CPAP usage of more than 4 hours 97% of the time. The patient has been averaging around 9 hours and 17 minutes of CPAP use per night. Her current pressures at 9. Her AHI down to 3.7. P 95th percentile pressure is 11.8 and leaks are minimal. As such, treatment has been successful. She is committed to long-term CPAP therapy. Since her last evaluation, the patient has gained weight and her current weight is up to 257 pounds. The patient otherwise is doing well. Sleep quality is improved and level of alertness during the day is also improved. No other new complaints otherwise for now. Her current Alabaster score is at 8. BP is 138/82 with a pulse of 90 and respiration of 16 and the patient's weight is 257 pounds. Temperature is 98.1 The patient appeared well nourished and normally developed. Vital signs as documented. Head exam is unremarkable. No scleral icterus or corneal arcus noted. Neck is without jugular venous distension, thyromegaly, or carotid bruits. Carotid upstrokes are brisk bilaterally. Lungs are clear to auscultation and percussion. Cardiac exam reveals the PMI to be normally sized and situated. Rhythm is regular. First and second heart sounds normal. No murmurs, rubs or gallops. Abdominal exam reveals normal bowel sounds, no masses, no organomegaly and no aortic enlargement. Extremities are nonedematous and both femoral and pedal pulses are normal.Examination of the skin revealed no evidence of significant rashes, suspicious appearing nevi or other concerning lesions.Neurologically, the patient is awake and alert and the patient does not have any focal neurological deficit. Cranial nerves are essentially intact. Assessment Symptomatic MARIKA with an AHI of 17, currently undergoing successful CPAP therapy pressure of 9 cm of water Chronic hypersomnia improved to CPAP therapy Obesity Comorbidities include migraines, chronic depression, cervical spine disease, acid reflux and hyperlipidemia Plan Continue CPAP therapy the same level of pressure Data is adequate and the patient meets insurance standards for compliancy No need for any further adjustments Keep the same mask interface and the patient is using the air fit P 30 I nasal pillows Encourage weight loss Implement good sleep hygiene measures See back in the office in one year's time in follow-up.
== END ==
LOC: 3 N SLEEP 14:39
PROVIDERS: ATTEND Internal Medicine Critical Care Medicine
DX: G47.33 Obstructive sleep apnea (adult) (pediatric) (principal); G43.909 Migraine, unspecified, not intractable, without status migrainosus; E66.9 Obesity, unspecified; E78.5 Hyperlipidemia, unspecified; F32.A Depression, unspecified; K21.9 Gastro-esophageal reflux disease without esophagitis; Z99.89 Dependence on other enabling machines and devices; Z88.5 Allergy status to narcotic agent; Z88.8 Allergy status to other drugs, medicaments and biological substances; Z79.82 Long term (current) use of aspirin
CPT/HCPCS: 99212

== ENCOUNTER → 2022-12-06 | Outpatient (CLI) | payer BC ==
--- NOTE | 2022-12-07 00:13 | MR ---
EXAMINATION TYPE: MR cervical spine wo con DATE OF EXAM: 12/06/2022 3:36 PM CLINICAL INDICATION:Female, 52 years old with history of M50.20 CERVICAL DISC DISPLACEMENT; PHH, Neck pain that radiates down left arm to fingers. History of surgery. COMPARISON: 11/24/2019. TECHNIQUE: Multi planar, multi sequence imaging was performed utilizing: T1-weighted, T2-weighted, an d turbo inversion recovery imaging of the cervical spine. IV Contrast: cc (none if empty) FINDINGS: Alignment: The cervical vertebral bodies have preserved heights. Alignment is within normal limits gi luther patient positioning. Bones: Postsurgical changes extending from C5-C6 and C7. No abnormal bony edema. Mild degeneration ch anges are seen throughout the spine. Bone signal is within normal limits. No abnormal bone marrow víctor ma on inversion recovery sequences. Cord: The spinal cord is unremarkable with regards to their signal intensity and morphology. Discs: Multilevel disc desiccation is present. C2-C3: No significant disc pathology. The spinal canal is patent. Bilateral facet and uncovertebral joint arthropathy are present with mild bilateral neural foraminal stenosis. C3-C4: No significant disc pathology. The spinal canal is patent. Bilateral facet and uncovertebral joint arthropathy are present with mild right and mild to moderate left neural foraminal stenosis. C4-C5: No significant disc pathology. The spinal canal is patent. Bilateral facet and uncovertebral joint arthropathy are present with mild bilateral neural foraminal stenosis. C5-C6: No significant disc pathology. The spinal canal is patent. Bilateral facet and uncovertebral joint arthropathy are present with mild bilateral neural foraminal stenosis. C6-C7: No significant disc pathology. The spinal canal is patent. Bilateral facet and uncovertebral joint arthropathy are present with mild to moderate bilateral neural foraminal stenosis. C7-T1: No significant disc pathology. The spinal canal is patent. No neural foraminal stenosis. Other: None. IMPRESSION: 1. No evidence for disc herniation or significant spinal canal stenosis. 2. Postsurgical changes with mild disc degeneration with associated osteoarthritic changes. No eviden ce for significant spinal canal or neural foraminal stenosis. Findings not significantly changed from prior in 2019.
== END | disposition home or self-care (01) ==
LOC: RADMRIMAIN 14:10
PROVIDERS: ATTEND Psychiatry & Neurology Neurology
DX: M50.20 Other cervical disc displacement, unspecified cervical region (principal); Z98.890 Other specified postprocedural states
CPT/HCPCS: 72141

== ENCOUNTER → 2023-07-03 | Outpatient (CLI) | payer BC ==
[2023-07-03 11:40] LABS: African American GFR (CKD) >90 (>60 ml/min/1.73 sqM); Blood Urea Nitrogen 12 mg/dL (7-17); Non-African American GFR(CKD) 80 (>60 ml/min/1.73 sqM)
--- NOTE | 2023-07-03 13:29 | CT ---
EXAMINATION TYPE: CT abdomen w con DATE OF EXAM: 07/03/2023 COMPARISON: 03/09/1949 HISTORY: Elevated LFTs RUQ pain CT DLP: 1423 mGycm CONTRAST: CT scan of the abdomen is performed with Oral Contrast and with IV Contrast, patient injected with 10 0 mL of Isovue 300. FINDINGS: LUNG BASES-: No visible nodule. No infiltrate. LIVER/GB: Hepatic steatosis. Gallbladder surgically absent. No space occupying hepatic lesion. Biliar y tree is of normal caliber. PANCREAS: No inflammation. No distinct mass. SPLEEN: No splenic enlargement. No lesion seen. ADRENALS: No nodule. No thickening. KIDNEYS/BLADDER: No hydronephrosis. No nephrolithiasis. No distinct renal mass. Urinary bladder g rossly unremarkable. BOWEL: Visualized bowel loops are of normal caliber. LYMPH NODES: No greater than 1cm abdominal or pelvic lymph nodes are appreciated. AORTA: No significant abnormality. OSSEOUS STRUCTURES: No significant abnormality is seen. OTHER: No significant additional abnormality is seen. IMPRESSION: 1. Mild hepatic steatosis. Otherwise unremarkable study.
== END | disposition home or self-care (01) ==
LOC: RADCTMAIN 10:34
PROVIDERS: ATTEND Family Medicine
DX: K76.0 Fatty (change of) liver, not elsewhere classified (principal)
CPT/HCPCS: 82565; 84520; 74160; 36415; Q9967

== ENCOUNTER → 2024-09-10 | Outpatient (CLI) | payer BC ==
--- NOTE | 2024-09-10 15:18 | MM ---
Reason for Exam: Screening (asymptomatic). Last mammogram was performed 1 year(s) and 11 month(s) ago. Patient History: Menarche at age 12. First Full-Term at age 19. Perimenopausal. Patient used Hormonal Contraceptives for 2 years. Risk Values: Lana 5 year model risk: 0.8%. NCI Lifetime model risk: 6.1%. Prior Study Comparison: 05/27/2017 Bilateral Screening Mammogram, [facility]. 06/22/2020 Bilateral Screening Mammogram, [facility]. 10/07/2022 Bilateral MG 3D screening mammo w/cad, [facility]. Tissue Density: The breasts are heterogeneously dense, which may obscure small masses. Findings: Analyzed By CAD. Right breast: There is no suspicious group of microcalcifications or new suspicious mass. Left breast: There is no suspicious group of microcalcifications or new suspicious mass. Overall Assessment: Negative, BI-RAD 1 Management: Screening Mammogram of both breasts in [address] [facility] will attempt to contact patient to return for supplemental views and ultrasound if indicated. Patient should continue monthly self-breast exams. A clinical breast exam by your physician is recommended on an annual basis. This exam should not preclude additional follow-up of suspicious palpable abnormalities. Note on Lana scores and lifetime risk: 1. A Lana score greater than 3% is considered moderate risk. If this is the case, consider specialist referral to assess eligibility for a risk reducing agent. 2. If overall lifetime risk for the development of breast cancer is 20% or higher, the patient may qualify for future screening with alternating mammogram and breast MRI. [facility], , 09/10/2024 3:15 PM. Electronically signed and approved by: Odell Reza DO
== END | disposition home or self-care (01) ==
LOC: RADMAMWWP 13:49
PROVIDERS: ATTEND Family Medicine
DX: Z12.31 Encounter for screening mammogram for malignant neoplasm of breast (principal); R92.333 Mammographic heterogeneous density, bilateral breasts; Z92.0 Personal history of contraception
CPT/HCPCS: 77063; 77067